=== PATIENT | male | born 1985 | race African-American/Black ===

== ENCOUNTER 2019-04-13 16:05 | Emergency (ER) | payer SELFPAY ==
[2019-04-13] MEDS ORDERED: Lidocaine 1% 5ml 5 ML ONE (16:16)
[2019-04-13 16:17] VITALS: BP 148/108
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
== END 2019-04-13 17:02 | disposition home or self-care (01) ==
LOC: ED 16:05
DX: Z48.00 Encounter for change or removal of nonsurgical wound dressing (principal)
CPT/HCPCS: 99281; 99282